=== PATIENT | male | born 1955 | race Caucasian/White ===

== ENCOUNTER 2019-12-07 07:30 | Inpatient (IN) | payer OTHER ==
[~2019-12-07] VITALS: Ht 175.3 cm; Wt 114.4 kg
[2020-01-04] VITALS (11 sets, daily range): BP systolic 101–158; BP diastolic 67–91; PULSE 60–84; TEMP 98–98.7
[2020-01-04] MEDS ORDERED: HCTZ12.5TAB PO (06:37)
[2020-01-04] MEDS ORDERED: LOTREL 10 MG-401 CAP PO (06:38)
[2020-01-04] MEDS ORDERED: LIPITOR 10MG10 MG PO (06:38)
[2020-01-04] MEDS ORDERED: TUMS500 MG PO (06:39)
--- NOTE | 2020-01-04 19:50 | NUR ---
Patient has done well today. Eras protocol followed. He has ambulated halls twice. Denies yet passing flatus. Ivf as ordered to Fani. He is tolerating clears without nausea. Mcdaniel to DD, urine still blood tinged, but coal sampler in color. Written education provided on mcdaniel care. PRADEEP drain to bulb suction with bloody output. Robotic lap site x5 edges intact. Scds ble. at bedside. Report to night nurse
--- NOTE | 2020-01-04 21:00 | NUR ---
Pt. laying in bed at this time. Pt. is A&OX3, assessment complete. IV to lt. hand patent, IV fluids infusing per orders. Abd. lap sitesx5- cdi. PRADEEP drain noted with bloody drainage. Pt. ambulated in the [place] x2 this eveing with [employer]. Pt. denies pain or other needs, call light within reach.
[2020-01-05 04:26] VITALS: BP 120/64; PULSE 66; TEMP 98.2
[2020-01-05 07:19] VITALS: BP 122/80; PULSE 63; TEMP 98
[2020-01-05 07:42] LABS: HEMATOCRIT 42.9 % (42.0-52.0); HEMOGLOBIN 15.2 g/dl (13.5-18.0)
[2020-01-05 07:50] LABS: CALCIUM 8.2 mg/dL (8.4-10.2); CREATININE, serum 1.22 (0.66-1.25); POTASSIUM 4.4 mmol/L (3.4-5.0)
--- NOTE | 2020-01-05 09:00 | NUR ---
Patient alert and oriented, answers questions appropriately. See assessment. Abdomen soft, non tender, non distended. Bowel sounds active x4 quads. +Flatus. Lap sites to abdomen with edges well approximated, no redness or drainage noted. PRADEEP to LLQ with bulb compressed, scant amount of serosanguinous drainage noted. Amador catheter patent and draining clear red urine. ERAS protocol reviewed with patient. No c/o at this time.
--- NOTE | 2020-01-05 09:06 | NUR ---
SANDI Davis with Urology here to see patient.
--- NOTE | 2020-01-05 09:08 | NUR ---
Initial visit; Patient thanked Airplane Refueler for offering God's blessings and a get well message.
--- NOTE | 2020-01-05 11:31 | NUR ---
Elevators Inspector met with patient to discuss discharge planning. Patient lives in [place] with his , Reyna (ph#[phone]) and sees Dr. Olsen for primary care. Patient obtains medications from [facility] in [place] with no difficulties. Patient does not use any DME and is independent with ADLS. Patient reports he has DPOA paperwork completed and plans to return home upon discharge with his providing transportation. No additional needs at this time.
[2020-01-05 12:52] VITALS: BP 135/73; PULSE 64; TEMP 97.7
--- NOTE | 2020-01-05 15:29 | NUR ---
Discharge instructions reviewed with patient and spouse, verbalized understanding. Amador catheter care reviewed. PRADEEP drain removed. Discharged via wheelchair to auto/home with spouse at 1400.
== END 2020-01-05 14:00 | disposition home or self-care (01) | DRG 708 ==
LOC: SURG 07:30 → INPTSU 01-04 05:20 → SURG 01-04 07:30
PROVIDERS: ADMIT Urology
PROC: 0VT34ZZ Resection of Bilateral Seminal Vesicles, Percutaneous Endoscopic Approach (ICD-10-PCS; 2020-01-04)
PROC: 0T778DZ Dilation of Left Ureter with Intraluminal Device, Via Natural or Artificial Opening Endoscopic (ICD-10-PCS; 2020-01-04)
PROC: 8E0W4CZ Robotic Assisted Procedure of Trunk Region, Percutaneous Endoscopic Approach (ICD-10-PCS; 2020-01-04)
PROC: 0VT04ZZ Resection of Prostate, Percutaneous Endoscopic Approach (ICD-10-PCS; principal; 2020-01-04 07:30)
DX: C61 Malignant neoplasm of prostate (principal); E78.5 Hyperlipidemia, unspecified; I10 Essential (primary) hypertension
CPT/HCPCS: C1769; C2617; J0690; J1100; J1885; J2370; J2405; J2704; J3010; J7050; J7120